=== PATIENT | male | born 1985 | race African-American/Black ===

== ENCOUNTER 2017-03-16 19:54 | Emergency (ER) | payer SELFPAY ==
[~2017-03-16] VITALS: Ht 185.4 cm; Wt 86.5 kg
[2017-03-16 19:55] VITALS: BP 127/45
== END 2017-03-16 22:45 | disposition home or self-care (01) ==
LOC: ER 19:54
DX: R22.1 Localized swelling, mass and lump, neck (principal); F17.200 Nicotine dependence, unspecified, uncomplicated; F12.10 Cannabis abuse, uncomplicated
CPT/HCPCS: 99283

== ENCOUNTER 2023-03-30 16:43 | Emergency (ER) | payer OTHER ==
[~2023-03-30] VITALS: Ht 185.4 cm; Wt 84.0 kg
[2023-03-30 18:00] VITALS: BP 140/77; PULSE 93; RESP 16; TEMP 98.5; O2SAT 99
== END 2023-03-30 19:30 | disposition home or self-care (01) ==
LOC: ER 16:43
DX: S16.1XXA Strain of muscle, fascia and tendon at neck level, initial encounter (principal); S39.012A Strain of muscle, fascia and tendon of lower back, initial encounter; V49.49XA Driver injured in collision with other motor vehicles in traffic accident, initial encounter; Y93.89 Activity, other specified; Y92.89 Other specified places as the place of occurrence of the external cause; Y99.8 Other external cause status
CPT/HCPCS: 99281

== ENCOUNTER 2024-06-21 10:32 | Emergency (ER) | payer OTHER ==
[~2024-06-21] VITALS: Ht 185.4 cm; Wt 82.0 kg
[2024-06-21 10:44] VITALS: O2SAT 100
[2024-06-21] MEDS ORDERED: OXYC-100 MT (11:06)
[2024-06-21] MEDS ORDERED: AMOX1TAB16 MT (11:06)
[2024-06-21 11:09] VITALS: BP 122/76; PULSE 74; RESP 16; TEMP 36.78072; O2SAT 100
[2024-06-21] MEDS: HYDROCODONE/ACETAMINOPHEN 5/325MG TABLET PO ONE (11:10)
[2024-06-21] MEDS: AMOXICILLIN/POTASSIUM CLAVULANATE 875/125MG TAB PO ONE (11:10)
== END 2024-06-21 11:10 | disposition home or self-care (01) ==
LOC: ER 10:32
DX: K04.7 Periapical abscess without sinus (principal)
CPT/HCPCS: 99283